=== PATIENT | female | born 1930 | race Caucasian/White ===

== ENCOUNTER 2017-06-28 13:57 | Inpatient (IN) | payer MEDICARE, BC ==
[2017-06-28] MEDS ORDERED: Temazepam 15 MG Cap PO PRN (15:53)
[2017-06-28] MEDS ORDERED: Sodium Chloride 0.9% 10 ML Syringe FLUSH PRN (15:53)
[2017-06-28] MEDS ORDERED: Docusate Sodium 100 MG Cap PO PRN (15:53)
[2017-06-28] MEDS ORDERED: Ondansetron 4 MG Tab.DIS PO PRN (15:53)
[2017-06-28] MEDS: Acetaminophen/HYDROcodone 325-5 MG Tab PO PRN ×2 (16:05→22:06)
--- NOTE | 2017-06-28 17:33 | EDM.PDOC ---
ED HPI GENERAL MEDICAL PROBLEM - General Chief Complaint: Upper Extremity Injury/Pain Stated Complaint: right shoulder pain s/p fall Time Seen by Provider: 06/28/17 14:40 Source of Information: Reports: Patient, Family History Limitations: Reports: No Limitations - History of Present Illness INITIAL COMMENTS - FREE TEXT/NARRATIVE: Vanessa is an 86 yo female who presents to the ER ambulatory via private vehicle. She states she was walking into her pharmacy and the wind caught the door causing her to fall down.States she fell onto her right shoulder. Immediately had discomfort in her right shoulder/arm. Was unable to get herself up and pharmacy staff ran out and assited her. She states she remembers falling and just from the shock maybe blacked out for a little bit. Denies hitting her head. States she does have some tingling in her arm. Unable to move her arm without increased discomfort. Right Shoulder Pain Score (Numeric/FACES): 8 - Related Data Allergies Allergy/AdvReac Type Severity Reaction Status Date / Time Penicillins Allergy Cannot Verified 06/28/17 14:03 Remember Home Meds: Home Meds Aspirin [Halfprin] 81 mg PO DAILY 10/27/16 [History] Benazepril HCl [Lotensin] 10 mg PO DAILY 10/27/16 [History] Calcium Carbonate/Vitamin D3 [Calcium 1,000 + D3 Caplet] 1 tab PO DAILY [History] Cholecalciferol (Vitamin D3) [Vitamin D3] 1,000 unit PO DAILY 10/27/16 [History] Docusate Sodium [Stool Softener] 50 mg PO DAILY PRN 10/27/16 [History] Lovastatin 20 mg PO DAILY 10/27/16 [History] Magnesium 250 mg PO DAILY 10/27/16 [History] Triamterene/Hydrochlorothiazid [Triamterene-HCTZ 37.5-25 MG] 1 cap PO DAILY 06/04 [History] Vit A/C/E AC/Znox/Cupric Oxide [Eye Vitamin-Minerals Tablet] 2 cap PO DAILY 06/04 [History] Vitamin B Complex 1 cap PO DAILY 10/27/16 [History] Past Medical History HEENT History: Reports: Sinusitis Cardiovascular History: Reports: High Cholesterol, Hypertension Genitourinary History: Reports: Other (See Below) Other Genitourinary History: nocturia Musculoskeletal History: Reports: Arthritis, Back Pain, Chronic Endocrine/Metabolic History: Reports: Vitamin D Deficiency - Past Surgical History GI Surgical History: Reports: Appendectomy Female Surgical History: Reports: Hysterectomy, Oophorectomy Neurological Surgical History: Reports: Lumbar Spine Musculoskeletal Surgical History: Reports: Knee Replacement Social & Family History - Tobacco Use Smoking Status *Q: Never Smoker - Recreational Drug Use Recreational Drug Use: No Review of Systems - Review of Systems Review Of Systems: See Below Constitutional: Denies: Chills, Fever Eyes: Reports: No Symptoms Ears: Reports: No Symptoms Nose: Reports: No Symptoms Mouth/Throat: Reports: No Symptoms Respiratory: Reports: No Symptoms. Denies: Shortness of Breath, Wheezing, Cough Cardiovascular: Reports: No Symptoms. Denies: Chest Pain, Lightheadedness GI/Abdominal: Reports: No Symptoms. Denies: Abdominal Pain, Diarrhea, Nausea, Vomiting Genitourinary: Reports: No Symptoms Musculoskeletal: Reports: Shoulder Pain (right) Skin: Reports: No Symptoms Neurological: Reports: No Symptoms Psychiatric: Reports: No Symptoms ED EXAM, GENERAL - Physical Exam Exam: See Below Exam Limited By: No Limitations General Appearance: Alert, No Apparent Distress (sitting on examination cart having normal conversation. ). No: Anxious, Lethargic, Obtunded, Severe Distress Eye Exam: Bilateral Eye: EOMI, Normal Inspection Nose: Normal Inspection, No Blood Throat/Mouth: Normal Voice, No Airway Compromise Head: Atraumatic, Normocephalic Neck: Normal Inspection Respiratory/Chest: No Respiratory Distress, Lungs Clear, Normal Breath Sounds, No Accessory Muscle Use Cardiovascular: Normal Peripheral Pulses, Regular Rate, Rhythm, No Edema, Systolic Murmur GI/Abdominal: Normal Bowel Sounds, Soft, Non-Tender, No Organomegaly, No Distention, No Mass Extremities: Arm Pain, Limited Range of Motion, Other (ROM deferred d/t humeral head fracture. ) Neurological: Alert, Oriented, Normal Cognition, Normal Gait, No Motor/Sensory Deficits Psychiatric: Normal Affect, Normal Mood Skin Exam: Warm, Dry, Intact, Normal Color Course - Vital Signs Last Recorded V/S: Last Vital Signs Temp 96.7 F 06/28/17 14:58 Pulse 76 06/28/17 14:58 Resp 18 06/28/17 14:58 BP 145/86 H 06/28/17 14:58 Pulse Ox 96 06/28/17 15:53 - Orders/Labs/Meds Orders: Active Orders 24 hr Category Date Time Status Patient Status [ADT] Routine ADT 06/28/17 15:53 Active Oxygen Therapy [RC] .PRN Care 06/28/17 15:53 Active Pulse Oximetry [RC] .PRN Care 06/28/17 15:53 Active Up With Assistance [RC] .PRN Care 06/28/17 15:53 Active VTE/DVT Education [RC] .PRN Care 06/28/17 15:53 Active Vital Signs [RC] 0000,0400,0800,1200,1600,2000 Care 06/28/17 15:53 Active PT Evaluation and Treatment [CONS] Routine Cons 06/28/17 15:53 Active 2 Gram Sodium Diet [DIET] Diet 06/28/17 Dinner Active Shoulder Comp Rt [CR] Stat Exams 06/28/17 14:16 Taken UA W/MICROSCOPIC [URIN] Routine Lab 06/28/17 15:53 Uncollected Acetaminophen/HYDROcodone [Everett 325-5 MG] Med 06/28/17 15:53 Active 1 tab PO Q4H PRN Aspirin [Halfprin] Med 06/29/17 08:00 Active 81 mg PO DAILY Calcium Carbonate/Vitamin D3 [Calcium Carbonate/Vitamin Med 06/29/17 08:00 Active D 1250 MG-200 Unit] 1 tab PO DAILY Docusate Sodium [Colace] Med 06/28/17 15:53 Active 100 mg PO BID PRN Enoxaparin [Lovenox] Med 06/28/17 15:53 Pending 30 mg SUBCUT Q24H HCTZ/Triamterene [Dyazide 25-37.5 MG] Med 06/29/17 08:00 Active 1 each PO DAILY Lisinopril [Prinivil] Med 06/29/17 08:00 Active 10 mg PO DAILY Magnesium Oxide Med 06/29/17 08:00 Active 250 mg PO DAILY Ondansetron [Zofran ODT] Med 06/28/17 15:53 Active 4 mg PO Q4H PRN Simvastatin [Zocor] Med 06/29/17 20:00 Active 10 mg PO BEDTIME Sodium Chloride 0.9% [Saline Flush] Med 06/28/17 15:53 Active 10 ml FLUSH ASDIRECTED PRN Temazepam [Restoril] Med 06/28/17 15:53 Active 15 mg PO BEDTIME PRN Vit A/C/E AC/Znox/Cupric Oxide [Eye Vitamin-Minerals Med 06/28/17 17:30 Active Tablet] 1 cap PO BIDMEALS Vitamin B Complex Med 06/29/17 08:00 Active 1 each PO DAILY fentaNYL [Sublimaze] Med 06/28/17 20:00 Active 12.5 mcg IVPUSH Q12H Saline Lock Insert [OM.PC] Routine Oth 06/28/17 15:53 Ordered Resuscitation Status Routine Resus Stat 06/28/17 15:37 Ordered Medication Orders Hydrocodone Bitart/Acetaminophen (Everett 325-5 Mg) 1 tab PO Q4H PRN PRN Reason: Pain (moderate 4-6) Last Admin: 06/28/17 16:05 Dose: 1 tab Aspirin (Halfprin) 81 mg PO DAILY [facility] Calcium Carbonate (Calcium Carbonate/Vitamin D 1250 Mg-200 Unit) 1 tab PO DAILY [facility] Docusate Sodium (Colace) 100 mg PO BID PRN PRN Reason: Constipation Enoxaparin Sodium (Lovenox) 30 mg SUBCUT Q24H [facility] Fentanyl (Sublimaze) 12.5 mcg IVPUSH Q12H [facility] Lisinopril (Prinivil) 10 mg PO DAILY [facility] Magnesium Oxide (Magnesium Oxide) 250 mg PO DAILY [facility] Maxivision Macula Formula Areds2 (Eye Vitamin) Own Med 1 cap PO BIDMEALS [place] Ondansetron HCl (Zofran Odt) 4 mg PO Q4H PRN PRN Reason: nausea, able to take PO Simvastatin (Zocor) 10 mg PO BEDTIME [facility] Sodium Chloride (Saline Flush) 10 ml FLUSH ASDIRECTED PRN PRN Reason: Keep Vein Open Temazepam (Restoril) 15 mg PO BEDTIME PRN PRN Reason: Sleep Triamterene/HCTZ (Dyazide 25-37.5 Mg) 1 each PO DAILY [facility] Vitamin B Complex (Vitamin B Complex) 1 each PO DAILY [facility] Meds: Medications Generic Name Dose Route Start Last Admin Trade Name Freq PRN Reason Stop Dose Admin Hydrocodone Bitart/Acetaminophen 1 tab 06/28/17 15:53 06/28/17 16:05 Everett 325-5 Mg PO 1 tab Q4H PRN Administration Pain (moderate 4-6) Aspirin 81 mg 06/29/17 08:00 Halfprin PO DAILY [facility] Calcium Carbonate 1 tab 06/29/17 08:00 Calcium Carbonate/Vitamin D 1250 Mg-200 Unit PO DAILY [facility] Docusate Sodium 100 mg 06/28/17 15:53 Colace PO BID PRN Constipation Enoxaparin Sodium 30 mg 06/28/17 15:53 Lovenox SUBCUT Q24H [facility] Fentanyl 12.5 mcg 06/28/17 20:00 Sublimaze IVPUSH Q12H [facility] Lisinopril 10 mg 06/29/17 08:00 Prinivil PO DAILY [facility] Magnesium Oxide 250 mg 06/29/17 08:00 Magnesium Oxide PO DAILY [facility] Maxivision Macula 1 cap 06/28/17 17:30 Formula Areds2 (Eye PO Vitamin) Own Med BIDMEALS [facility] Ondansetron HCl 4 mg 06/28/17 15:53 Zofran Odt PO Q4H PRN nausea, able to take PO Simvastatin 10 mg 06/29/17 20:00 Zocor PO BEDTIME [facility] Sodium Chloride 10 ml 06/28/17 15:53 Saline Flush FLUSH ASDIRECTED PRN Keep Vein Open Temazepam 15 mg 06/28/17 15:53 Restoril PO BEDTIME PRN Sleep Triamterene/HCTZ 1 each 06/29/17 08:00 Dyazide 25-37.5 Mg PO DAILY [facility] Vitamin B Complex 1 each 06/29/17 08:00 Vitamin B Complex PO DAILY [facility] Departure - Departure Time of Disposition: 15:53 Disposition: Admitted As Inpatient 68 Clinical Impression: Fracture of humerus Qualifiers: Encounter type: initial encounter Humerus Location: proximal Fracture type: closed Fracture morphology: unspecified fracture morphology Laterality: right Qualified Code(s): S42.201A - Unspecified fracture of upper end of right humerus , initial encounter for closed fracture - Discharge Information - Problem List & Annotations (1) Fracture of humerus SNOMED Code(s): 80187872 Code(s): S42.309A - UNSP FRACTURE OF SHAFT OF HUMERUS, UNSP ARM, INIT Status: Acute Current Visit: Yes Qualifiers: Encounter type: initial encounter Humerus Location: proximal Fracture type: closed Fracture morphology: unspecified fracture morphology Laterality : right Qualified Code(s): S42.201A - Unspecified fracture of upper end of right humerus, initial encounter for closed fracture - Problem List Review Problem List Initiated/Reviewed/Updated: Yes - My Orders Last 24 Hours: My Active Orders 06/28/17 14:16 Shoulder Comp Rt [CR] Stat 06/28/17 15:37 Resuscitation Status Routine 06/28/17 15:53 Patient Status [ADT] Routine Oxygen Therapy [RC] .PRN Pulse Oximetry [RC] .PRN Up With Assistance [RC] .PRN VTE/DVT Education [RC] .PRN Vital Signs [RC] 0000,0400,0800,1200,1600,2000 PT Evaluation and Treatment [CONS] Routine UA W/MICROSCOPIC [URIN] Routine Acetaminophen/HYDROcodone [Everett 325-5 MG] 1 tab PO Q4H PRN Docusate Sodium [Colace] 100 mg PO BID PRN Enoxaparin [Lovenox] 30 mg SUBCUT Q24H Ondansetron [Zofran ODT] 4 mg PO Q4H PRN Sodium Chloride 0.9% [Saline Flush] 10 ml FLUSH ASDIRECTED PRN Temazepam [Restoril] 15 mg PO BEDTIME PRN Saline Lock Insert [OM.PC] Routine 06/28/17 17:30 Vit A/C/E AC/Znox/Cupric Oxide [Eye Vitamin-Minerals Tablet] 1 cap PO BIDMEALS 06/28/17 20:00 fentaNYL [Sublimaze] 12.5 mcg IVPUSH Q12H 06/28/17 Dinner 2 Gram Sodium Diet [DIET] 06/29/17 08:00 Aspirin [Halfprin] 81 mg PO DAILY Calcium Carbonate/Vitamin D3 [Calcium Carbonate/Vitamin D 1250 MG-200 Unit] 1 tab PO DAILY HCTZ/Triamterene [Dyazide 25-37.5 MG] 1 each PO DAILY Lisinopril [Prinivil] 10 mg PO DAILY Magnesium Oxide 250 mg PO DAILY Vitamin B Complex 1 each PO DAILY 06/29/17 20:00 Simvastatin [Zocor] 10 mg PO BEDTIME - Assessment/Plan Admission H&P: Please use this note as an admission H&P Last 24 Hours: My Active Orders 06/28/17 14:16 Shoulder Comp Rt [CR] Stat 06/28/17 15:37 Resuscitation Status Routine 06/28/17 15:53 Patient Status [ADT] Routine Oxygen Therapy [RC] .PRN Pulse Oximetry [RC] .PRN Up With Assistance [RC] .PRN VTE/DVT Education [RC] .PRN Vital Signs [RC] 0000,0400,0800,1200,1600,2000 PT Evaluation and Treatment [CONS] Routine UA W/MICROSCOPIC [URIN] Routine Acetaminophen/HYDROcodone [Everett 325-5 MG] 1 tab PO Q4H PRN Docusate Sodium [Colace] 100 mg PO BID PRN Enoxaparin [Lovenox] 30 mg SUBCUT Q24H Ondansetron [Zofran ODT] 4 mg PO Q4H PRN Sodium Chloride 0.9% [Saline Flush] 10 ml FLUSH ASDIRECTED PRN Temazepam [Restoril] 15 mg PO BEDTIME PRN Saline Lock Insert [OM.PC] Routine 06/28/17 17:30 Vit A/C/E AC/Znox/Cupric Oxide [Eye Vitamin-Minerals Tablet] 1 cap PO BIDMEALS 06/28/17 20:00 fentaNYL [Sublimaze] 12.5 mcg IVPUSH Q12H 06/28/17 Dinner 2 Gram Sodium Diet [DIET] 06/29/17 08:00 Aspirin [Halfprin] 81 mg PO DAILY Calcium Carbonate/Vitamin D3 [Calcium Carbonate/Vitamin D 1250 MG-200 Unit] 1 tab PO DAILY HCTZ/Triamterene [Dyazide 25-37.5 MG] 1 each PO DAILY Lisinopril [Prinivil] 10 mg PO DAILY Magnesium Oxide 250 mg PO DAILY Vitamin B Complex 1 each PO DAILY 06/29/17 20:00 Simvastatin [Zocor] 10 mg PO BEDTIME Plan: DIscussed with Vanessa and her family about admission for pain control. Consulted with Dr. Linda and will admit to his services under acute care. Verbal orders received by Dr. Linda. Family was in agreement. Will closely monitor.
[2017-06-28] MEDS: [UNRECOGNIZED DRUG - OTHER] PO SCH (17:34)
[2017-06-28] MEDS: fentaNYL 100 MCG/2 ML SDV IVPUSH SCH (20:24)
[2017-06-29] MEDS: Vitamin B Complex Cap PO SCH (08:31)
[2017-06-29] MEDS: Aspirin 81 MG Tab.EC PO SCH (08:31)
[2017-06-29] MEDS: Lisinopril 10 MG Tab PO SCH (08:31)
[2017-06-29] MEDS: Calcium Carbonate/Vitamin D3 1250 MG-200 Unit Tab PO SCH (08:31)
[2017-06-29] MEDS: Hydrochlorothiazide/Triamterene 25-37.5 MG Cap PO SCH (08:31)
[2017-06-29] MEDS: Enoxaparin 30 MG/0.3 ML Syringe SUBCUT SCH (08:32)
[2017-06-29] MEDS: fentaNYL 100 MCG/2 ML SDV IVPUSH SCH ×2 (08:33→21:13)
[2017-06-29] MEDS: [UNRECOGNIZED DRUG - OTHER] PO SCH ×2 (08:34→17:10)
[2017-06-29] MEDS: Acetaminophen/HYDROcodone 325-5 MG Tab PO PRN ×2 (10:50→16:21)
--- NOTE | 2017-06-29 11:06 | PN ---
DATE: 06/29/2017 Vanessa Alan got caught in the wind, fell, and had a mildly displaced proximal fracture right humerus. PHYSICAL EXAMINATION: GENERAL: On examination today, the patient is alert, orientated. VITAL SIGNS: As noted. NECK: Supple. CHEST: Clear. CARDIAC: Regular. NEUROVASCULAR: Bundles intact. ASSESSMENT: HUMERAL FRACTURE. P: Continue IV fentanyl for pain. SHARON/THIAGO /[id number]
[2017-06-29] MEDS ORDERED: Simvastatin 10 MG Tab PO SCH (20:00)
[2017-06-30] MEDS: Enoxaparin 30 MG/0.3 ML Syringe SUBCUT SCH (07:57)
[2017-06-30] MEDS: fentaNYL 100 MCG/2 ML SDV IVPUSH SCH (08:11)
[2017-06-30] MEDS: Aspirin 81 MG Tab.EC PO SCH (08:13)
[2017-06-30] MEDS: Hydrochlorothiazide/Triamterene 25-37.5 MG Cap PO SCH (08:13)
[2017-06-30] MEDS: Vitamin B Complex Cap PO SCH (08:14)
[2017-06-30] MEDS: Calcium Carbonate/Vitamin D3 1250 MG-200 Unit Tab PO SCH (08:14)
[2017-06-30] MEDS: Lisinopril 10 MG Tab PO SCH (08:14)
[2017-06-30] MEDS: [UNRECOGNIZED DRUG - OTHER] PO SCH (08:15)
--- NOTE | 2017-06-30 08:42 | PN ---
DATE: 06/30/2017 This lady came in with an impacted fracture, proximal right humerus. She still has neurovascular bundles intact. I am going to CT her shoulder this morning and go from there. SHARON/THIAGO /[id number]
[2017-06-30] MEDS: Acetaminophen/HYDROcodone 325-5 MG Tab PO PRN (11:15)
[2017-06-30 11:54] VITALS: BP 109/74
--- NOTE | 2017-06-30 13:44 | PCM.DCSUM1 ---
Discharge Summary - Hospital Course Free Text/Narrative:: Vanessa was admitted to the hospital from the ER on 06/28/2017 following a fall. Xray showed a right proximal humerus fracture. Throughout hospital stay, neurovascular bundle was intact. Pain was managed with IV pain medications. At the time of discharge pain was well controlled on oral pain medications. Script sent with patient for Stephenson 5mg/325mg. - Discharge Data Discharge Date: 06/30/17 Discharge Disposition: Home, Self-Care 01 Condition: Good - Discharge Diagnosis/Problem(s) (1) Fracture of humerus SNOMED Code(s): 68069700 ICD Code: S42.309A - UNSP FRACTURE OF SHAFT OF HUMERUS, UNSP ARM, INIT Status: Acute Priority: Medium Current Visit: Yes Qualifiers: Encounter type: initial encounter Humerus Location: proximal Fracture type: closed Fracture morphology: unspecified fracture morphology Laterality : right Qualified Code(s): S42.201A - Unspecified fracture of upper end of right humerus, initial encounter for closed fracture (2) Hypertension SNOMED Code(s): 73107409 ICD Code: I10 - ESSENTIAL (PRIMARY) HYPERTENSION Status: Acute Priority: Medium Current Visit: Yes Qualifiers: Hypertension type: unspecified Qualified Code(s): I10 - Essential (primary ) hypertension (3) Hyperlipidemia SNOMED Code(s): 33404021 ICD Code: E78.5 - HYPERLIPIDEMIA, UNSPECIFIED Status: Acute Priority: Low Current Visit: Yes - Patient Instructions Diet: Regular Diet as Tolerated Activity: Apply Ice, As Tolerated Driving: Do Not Drive (while taking narcotics or until therapy clears) Notify Provider of: Fever, Increased Pain, Swelling and Redness, Drainage Other/Special Instructions: Keep right arm immobilized in sling until follow up - Discharge Plan Home Medications: Home Meds Aspirin [Halfprin] 81 mg PO DAILY 10/27/16 [History] Benazepril HCl [Lotensin] 10 mg PO DAILY 10/27/16 [History] Calcium Carbonate/Vitamin D3 [Calcium 1,000 + D3 Caplet] 1 tab PO DAILY [History] Cholecalciferol (Vitamin D3) [Vitamin D3] 1,000 unit PO DAILY 10/27/16 [History] Docusate Sodium [Stool Softener] 50 mg PO DAILY PRN 10/27/16 [History] Lovastatin 20 mg PO DAILY 10/27/16 [History] Magnesium 250 mg PO DAILY 10/27/16 [History] Triamterene/Hydrochlorothiazid [Triamterene-HCTZ 37.5-25 MG] 1 cap PO DAILY 06/04 [History] Vit A/C/E AC/Znox/Cupric Oxide [Eye Vitamin-Minerals Tablet] 2 cap PO DAILY 06/04 [History] Vitamin B Complex 1 cap PO DAILY 10/27/16 [History] Patient Handouts: Humerus Fracture Treated With Immobilization, [id number] Forms: ED Department Discharge Referrals: Mu Linda MD [Primary Care Provider] - (Follow up Monday afternoon with Dr. Linda in [place]) - Patient Data Vitals - Most Recent: Last Vital Signs Temp 99.4 F 06/30/17 11:53 Pulse 83 06/30/17 11:53 Resp 20 06/30/17 11:53 BP 109/74 06/30/17 11:53 Pulse Ox 95 06/30/17 11:53 Weight - Most Recent: 119 lb 6 oz Med Orders - Current: Current Medications Hydrocodone Bitart/Acetaminophen (Stephenson 325-5 Mg) 1 tab PO Q4H PRN PRN Reason: Pain (moderate 4-6) Last Admin: 06/30/17 11:15 Dose: 1 tab Aspirin (Halfprin) 81 mg PO DAILY [facility] Last Admin: 06/30/17 08:13 Dose: 81 mg Calcium Carbonate (Calcium Carbonate/Vitamin D 1250 Mg-200 Unit) 1 tab PO DAILY [facility] Last Admin: 06/30/17 08:14 Dose: 1 tab Docusate Sodium (Colace) 100 mg PO BID PRN PRN Reason: Constipation Enoxaparin Sodium (Lovenox) 30 mg SUBCUT DAILY [facility] Last Admin: 06/30/17 07:57 Dose: 30 mg Fentanyl (Sublimaze) 12.5 mcg IVPUSH Q12H [facility] Last Admin: 06/30/17 08:11 Dose: 12.5 mcg Lisinopril (Prinivil) 10 mg PO DAILY [facility] Last Admin: 06/30/17 08:14 Dose: 10 mg Magnesium Oxide (Magnesium Oxide) 250 mg PO DAILY [facility] Last Admin: 06/30/17 08:14 Dose: 250 mg Maxivision Macula Formula Areds2 (Eye Vitamin) Own Med 1 cap PO BIDMEALS [facility] Last Admin: 06/30/17 08:15 Dose: 1 cap Ondansetron HCl (Zofran Odt) 4 mg PO Q4H PRN PRN Reason: nausea, able to take PO Simvastatin (Zocor) 10 mg PO BEDTIME [facility] Last Admin: 06/29/17 21:13 Dose: 10 mg Sodium Chloride (Saline Flush) 10 ml FLUSH ASDIRECTED PRN PRN Reason: Keep Vein Open Temazepam (Restoril) 15 mg PO BEDTIME PRN PRN Reason: Sleep Triamterene/HCTZ (Dyazide 25-37.5 Mg) 1 each PO DAILY [facility] Last Admin: 06/30/17 08:13 Dose: 1 each Vitamin B Complex (Vitamin B Complex) 1 each PO DAILY [facility] Last Admin: 06/30/17 08:14 Dose: 1 each - Exam General: Reports: Alert, Oriented Lungs: Reports: Clear to Auscultation, Normal Respiratory Effort Cardiovascular: Reports: Regular Rate, Regular Rhythm Extremities: Normal Inspection, Normal Capillary Refill, Limited Range of Motion (to RUE) Skin: Reports: Warm, Dry, Intact Psy/Mental Status: Reports: Alert, Normal Affect, Normal Mood *Q Meaningful Use (DIS) - VTE *Q VTE Criteria *Q: - Stroke *Q Stroke Criteria *Q: - AMI *Q AMI Criteria *Q:
== END 2017-06-30 14:10 | disposition home or self-care (01) | DRG 563 ==
LOC: CC.ED 13:57 → UNDOADMIN 14:56 → CC.MS 14:56
PROVIDERS: ADMIT Physician Assistant Medical; ATTEND General Practice
DX: S42.201A Unspecified fracture of upper end of right humerus, initial encounter for closed fracture (principal); W18.39XA Other fall on same level, initial encounter; Y92.512 Supermarket, store or market as the place of occurrence of the external cause; I10 Essential (primary) hypertension; E78.5 Hyperlipidemia, unspecified; G89.29 Other chronic pain; M54.9 Dorsalgia, unspecified; E78.00 Pure hypercholesterolemia, unspecified; M19.90 Unspecified osteoarthritis, unspecified site; E55.9 Vitamin D deficiency, unspecified; Z96.659 Presence of unspecified artificial knee joint; Z79.82 Long term (current) use of aspirin; Z79.899 Other long term (current) drug therapy; Z88.0 Allergy status to penicillin
CPT/HCPCS: 36415; 73030-RT; 73200-RT; 80048; 81001; 85025; 97161-GP; 97530-GP; 99284; A9270-GY; J1650; J3010

== ENCOUNTER 2017-08-05 11:01 | Observation (INO) | payer MEDICARE, BC ==
--- NOTE | 2017-08-05 12:32 | PCM.SN ---
- Free Text/Narrative Note: Please use my Clinic Note from today for admitting H&P. Thank you.
[2017-08-05] MEDS ORDERED: Ondansetron 4 MG/2 ML SDV IV PRN (12:52)
[2017-08-05] MEDS ORDERED: Temazepam 15 MG Cap PO PRN (12:52)
[2017-08-05] MEDS ORDERED: Acetaminophen/HYDROcodone 325-5 MG Tab PO PRN (12:52)
[2017-08-05] MEDS ORDERED: Acetaminophen 325 MG Tab PO PRN (12:52)
[2017-08-05] MEDS ORDERED: Sodium Chloride 0.9% 500 ML IV ONE (12:52)
[2017-08-05] MEDS ORDERED: Levofloxacin/Dextrose 5%-Water 500 MG in Premix Bag 1 BAG IV SCH (13:00)
[2017-08-05] MEDS ORDERED: Docusate Sodium 100 MG Cap PO PRN (13:28)
[2017-08-05] MEDS ORDERED: Levofloxacin/Dextrose 5%-Water 500 MG in Premix Bag 1 BAG IV ONE (13:30)
[2017-08-05] MEDS: NS + KCl 20mEq/L 1,000 ML IV SCH ×2 (13:33→20:04)
[2017-08-05] MEDS: Potassium Chloride 10 MEQ Tab.ER PO SCH (17:27)
[2017-08-05] MEDS ORDERED: Aspirin 81 MG Tab.EC PO SCH (17:30)
[2017-08-05] MEDS ORDERED: Beta-Carotene (Vitamin A) w/Vitamin C & E plus Minerals Tab PO SCH (20:00)
[2017-08-06 07:20] LABS: CHLORIDE,CL 103 mEq/L (98-106); SODIUM,NA 135 mEq/L (136-145)
[2017-08-06] MEDS: NS + KCl 20mEq/L 1,000 ML IV SCH (07:24)
[2017-08-06] MEDS: Potassium Chloride 10 MEQ Tab.ER PO SCH (07:44)
[2017-08-06] MEDS ORDERED: Beta-Carotene (Vitamin A) w/Vitamin C & E plus Minerals Tab PO SCH (08:00)
[2017-08-06] MEDS ORDERED: TRIAMTERENE PO SCH (08:00)
[2017-08-06] MEDS ORDERED: LOVASTATIN 20 MG PO SCH (08:00)
[2017-08-06] MEDS ORDERED: HYDROCHLOROTHIAZIDE PO SCH (08:00)
[2017-08-06] MEDS ORDERED: BENAZEPRIL 20 MG PO SCH (08:00)
[2017-08-06] MEDS ORDERED: Levofloxacin/Dextrose 5%-Water 500 MG in Premix Bag 1 BAG IV ONE (08:47)
--- NOTE | 2017-08-06 09:08 | PCM.DCSUM1 ---
Discharge Summary - Hospital Course HPI Initial Comments: This patient is an 86 year old female that I saw in clinic yesterday. I admitted her for UTI, Dehydration, and Hypokalemia. After starting IV abx, fluids with potassium she is feeling better today. She reports that her abdominal pain has resolved and so has her back pain. She reports that the only symptom that remains this morning is burning with urination. She reports that she feels fine is and is ready to go home today. I reviewed patient labs. Yesterday her sodium was 103, potassium 2.7, chloride 90. Today labs are much improved at sodium 135, potassium 3.6, chloride 103. She has had no patient monitor changes and is NSR. Patient reports she has not taken potassium for a very long time. Patient also reports that the pyridium made her vomit when she took it Monday. I will discontinue her pyridium, macrobid. I will discharge on potassium chloride and Levaquin. Will discharge. I have also ordered a urine culture. Stable. - Discharge Data Discharge Date: 08/06/17 Discharge Disposition: Home, Self-Care 01 Condition: Good - Patient Summary/Data Labs Pending at D/C: Urine Culture - Patient Instructions Diet: Usual Diet as Tolerated Activity: As Tolerated Showering/Bathing: May Shower Notify Provider of: Fever, Increased Pain, Nausea and/or Vomiting - Discharge Plan Prescriptions/Med Rec: Levofloxacin [Levaquin] 500 mg PO Q24H 5 Days #5 tablet Potassium Chloride [Klor-Con 10] 20 meq PO WITHBREAKFAST #30 tab.er Home Medications: Home Meds Aspirin [Halfprin] 81 mg PO WITHDINNER 10/27/16 [History] Benazepril HCl [Lotensin] 10 mg PO DAILY 10/27/16 [History] Calcium Carbonate/Vitamin D3 [Calcium 1,000 + D3 Caplet] 1 tab PO 1000 10/27/16 [History] Cholecalciferol (Vitamin D3) [Vitamin D3] 1,000 unit PO 1000 10/27/16 [History] Docusate Sodium [Stool Softener] 50 mg PO DAILY PRN 10/27/16 [History] Lovastatin 20 mg PO WITHDINNER 10/27/16 [History] Magnesium 250 mg PO 1430 10/27/16 [History] Triamterene/Hydrochlorothiazid [Triamterene-HCTZ 37.5-25 MG] 1 cap PO DAILY 06/04 [History] Vit A/C/E AC/Znox/Cupric Oxide [Eye Vitamin-Minerals Tablet] 2 cap PO BID [History] Cyanocobalamin (Vitamin B12) [Vitamin B12] 1,000 mcg PO 1000 08/05/17 [History] Levofloxacin [Levaquin] 500 mg PO Q24H 5 Days #5 tablet 08/06/17 [Rx] Potassium Chloride [Klor-Con 10] 20 meq PO WITHBREAKFAST #30 tab.er 08/06/17 [Rx ] Patient Handouts: Hypokalemia, Dehydration, Adult, [id number], Urinary Tract Infection, Adult - Discharge Summary/Plan Comment DC Time >30 min.: No - General Info Functional Status: Reports: Pain Controlled, Tolerating Diet, Ambulating - Review of Systems General: Reports: No Symptoms HEENT: Reports: No Symptoms Pulmonary: Reports: No Symptoms Cardiovascular: Reports: No Symptoms Gastrointestinal: Reports: No Symptoms. Denies: Abdominal Pain, Nausea, Vomiting Genitourinary: Reports: Dysuria. Denies: Incontinence Musculoskeletal: Reports: No Symptoms Skin: Reports: No Symptoms Neurological: Reports: No Symptoms Psychiatric: Reports: No Symptoms - Patient Data Vitals - Most Recent: Last Vital Signs Temp 97.8 F 08/06/17 08:00 Pulse 80 08/06/17 08:00 Resp 18 08/06/17 08:00 BP 152/82 H 08/06/17 08:00 Pulse Ox 97 08/06/17 08:00 Weight - Most Recent: 114 lb 10.246 oz I&O - Last 24 hours: Intake & Output 08/05/17 08/06/17 08/06/17 22:59 06:59 14:59 Intake Total 815 1000 Balance 815 1000 Lab Results - Last 24 hrs: Laboratory Results - last 24 hr 08/06/17 08/06/17 Range/Units 06:55 06:55 WBC 4.8 L (5.0-10.0) 10^3/uL RBC 3.89 L (4.00-5.50) 10^6/uL Hgb 11.3 L (12.0-16.0) g/dL Hct 33.5 L (37.0-47.0) % MCV 86.1 (82.0-94.0) fL MCH 29.0 (27.0-32.0) pg MCHC 33.7 (33.0-38.0) g/dL RDW Coeff of Orin 13.7 (11.0-15.0) % Plt Count 200 (150-400) 10^3/uL Neut % (Auto) 54.6 (35-85) % Lymph % (Auto) 15.1 (10-55) % [place]ney % (Auto) 19.1 H (0-16) % Eos % (Auto) 10.6 H (0-5) % Baso % (Auto) 0.6 (0-3) % Neut # (Auto) 2.63 (1.80-7.00) 10^3/uL Lymph # (Auto) 0.73 L (1.00-4.80) 10^3/uL Harney # (Auto) 0.92 H (0.00-0.80) 10^3/uL Eos # (Auto) 0.51 H (0.00-0.45) 10^3/uL Baso # (Auto) 0.03 10^3/uL Sodium 135 L (136-145) mEq/L Potassium 3.6 D (3.5-5.0) mEq/L Chloride 103 (98-106) mEq/L Carbon Dioxide 26 (21-32) mmol/L BUN 7 (7-18) mg/dL Creatinine 0.8 (0.6-1.0) mg/dL Est Cr Clr Drug Dosing 41.40 mL/min Estimated GFR (MDRD) > 60 (>=60) mL/min Glucose 91 (75-99) mg/dL Calcium 8.3 L (8.4-10.1) mg/dL Med Orders - Current: Current Medications Acetaminophen (Tylenol) 650 mg PO Q4H PRN PRN Reason: Pain (Mild 1-3)/fever Hydrocodone Bitart/Acetaminophen ([place] 325-5 Mg) 1 tab PO Q4H PRN PRN Reason: Pain (moderate 4-6) Aspirin (Halfprin) 81 mg PO [facility] Last Admin: 08/05/17 17:27 Dose: 81 mg Docusate Sodium (Colace) 100 mg PO DAILY PRN PRN Reason: Constipation Potassium Chloride/Sodium Chloride (Normal Saline With 20 Meq Kcl) 1,000 mls @ 125 mls/hr IV ASDIRECTED [facility] Stop: 08/06/17 12:00 Last Admin: 08/06/17 07:24 Dose: 125 mls/hr Levofloxacin/Dextrose 500 mg/ (Premix) 100 mls @ 100 mls/hr IV ONETIME ONE Stop: 08/06/17 09:46 Magnesium Oxide (Magnesium Oxide) 250 mg PO DAILY@1430 [facility] Last Admin: 08/05/17 14:27 Dose: 250 mg Multivitamins/Minerals (Prosight) 2 tab PO 0800,1730 [facility] Last Admin: 08/06/17 07:41 Dose: 2 tab Benazapril 20mgOwn (Med) 0.5 each PO DAILY [facility] Last Admin: 08/06/17 07:42 Dose: 0.5 each Lovastatin 20mgOwn (Med) 1 each PO DAILY [facility] Last Admin: 08/06/17 07:42 Dose: 1 each Ondansetron HCl (Zofran) 4 mg IV Q6H PRN PRN Reason: Nausea/Vomiting Potassium Chloride (Klor-Con 10) 20 meq PO BIDMEALS [facility] Last Admin: 08/06/17 07:44 Dose: 20 meq Temazepam (Restoril) 15 mg PO BEDTIME PRN PRN Reason: Sleep Triamterene/HCTZ (Dyazide 25-37.5 Mg) 1 each PO DAILY [facility] Last Admin: 08/06/17 07:42 Dose: 1 each Discontinued Medications Levofloxacin/Dextrose 500 mg/ (Premix) 100 mls @ 100 mls/hr IV Q24H [facility] Last Admin: 08/05/17 13:45 Dose: Not Given Sodium Chloride (Normal Saline) 500 mls @ 500 mls/hr IV .BOLUS ONE Stop: 08/05/17 13:51 Last Admin: 08/05/17 13:32 Dose: 500 mls/hr Levofloxacin/Dextrose 500 mg/ (Premix) 100 mls @ 100 mls/hr IV ONETIME ONE Stop: 08/05/17 14:29 Last Admin: 08/05/17 13:31 Dose: 100 mls/hr Levofloxacin/Dextrose (Levaquin In D5w 250 Mg/50 Ml) 50 mls @ 50 mls/hr IV Q24H [facility] Multivitamins/Minerals (Prosight) 2 tab PO BID [place] Last Admin: 08/05/17 20:04 Dose: Not Given - Exam General: Reports: Alert, Oriented, Cooperative, No Acute Distress Lungs: Reports: Clear to Auscultation, Normal Respiratory Effort Cardiovascular: Reports: Regular Rate, Regular Rhythm GI/Abdominal Exam: Normal Bowel Sounds, Soft, Non-Tender, No Organomegaly, No Distention, No Abnormal Bruit, No Mass, Pelvis Stable Back Exam: Reports: Normal Inspection, Full Range of Motion. Denies: CVA Tenderness (L), CVA Tenderness (R) Extremities: Normal Inspection, Normal Range of Motion, Non-Tender, No Pedal Edema, Normal Capillary Refill Skin: Reports: Warm, Dry, Intact Neurological: Reports: No New Focal Deficit Psy/Mental Status: Reports: Alert, Normal Affect, Normal Mood *Q Meaningful Use (DIS) - VTE *Q VTE Criteria *Q: - Stroke *Q Stroke Criteria *Q: - AMI *Q AMI Criteria *Q:
[2017-08-06 12:40] VITALS: BP 112/91
[2017-08-06] MEDS ORDERED: Levofloxacin/Dextrose 5%-Water 50 ML IV SCH (13:30)
== END 2017-08-06 14:13 | disposition home or self-care (01) ==
LOC: UNDOADMOB 11:01 → CC.MS 11:01 → UNDODISOB 08-06 14:13
PROVIDERS: ADMIT Nurse Practitioner; ATTEND General Practice
DX: N39.0 Urinary tract infection, site not specified (principal); E87.6 Hypokalemia; E86.0 Dehydration; R10.9 Unspecified abdominal pain; M54.9 Dorsalgia, unspecified; M19.90 Unspecified osteoarthritis, unspecified site; I10 Essential (primary) hypertension; E78.5 Hyperlipidemia, unspecified; Z79.82 Long term (current) use of aspirin; Z79.899 Other long term (current) drug therapy; Z88.0 Allergy status to penicillin; R30.0 Dysuria
CPT/HCPCS: 36415; 80048; 85025; 87086; 93005; 93010; 96361; 96365; 96366; 99217; 99220; A9270; G0378; J1956; J3480; J7040; 80053; 81001

== ENCOUNTER 2022-08-09 18:35 | Emergency (ER) | payer MEDICARE, BC ==
[~2022-08-09 18:35] MED LIST: Lidocaine 1% with EPINEPHrine 1:100,000 20 ML MDV ONE
[2022-08-09 18:43] VITALS: BP 138/71; PULSE 92
[2022-08-09] MEDS ORDERED: Lidocaine 1% with EPINEPHrine 1:100,000 20 ML MDV INJECT STA (18:49)
[2022-08-09] MEDS ORDERED: Bacitracin/Neomycin/Polymyxin B Oint 0.9 GM U/D Packet ONE (19:10)
[2022-08-09] MEDS ORDERED: Bacitracin/Neomycin/Polymyxin B Oint 0.9 GM U/D Packet TOP ONE (19:54)
== END 2022-08-09 19:49 | disposition home or self-care (01) ==
LOC: CC.ED 18:35
DX: S01.112A Laceration without foreign body of left eyelid and periocular area, initial encounter (principal); S01.81XA Laceration without foreign body of other part of head, initial encounter; E78.00 Pure hypercholesterolemia, unspecified; I10 Essential (primary) hypertension; M19.90 Unspecified osteoarthritis, unspecified site; Z88.0 Allergy status to penicillin; Z79.82 Long term (current) use of aspirin; Z79.899 Other long term (current) drug therapy; W10.9XXA Fall (on) (from) unspecified stairs and steps, initial encounter
CPT/HCPCS: 12013; 99282; 99282-25